=== PATIENT | male | born 1995 | race Caucasian/White ===

== ENCOUNTER → 2016-09-15 | Outpatient (CLI) | payer BC ==
--- NOTE | 2016-09-15 09:49 | USB ---
Reason for exam: clinical finding. History: Family history of breast cancer in maternal aunt at age 50. Indicated problem(s): palpable abnormality and pain in the right breast. Physical Findings: Nurse Summary: 0.5cm nodule at 10 o'clock (nurse dw). US Breast RT Right breast ultrasound includes all four quadrants, the retroareolar region and axilla. Finding demonstrates no cystic or solid lesion seen. These results were verbally communicated with the patient and result sheet given to the patient on 09/15/16. ASSESSMENT: Negative, BI-RAD 1 RECOMMENDATION: Clinical management of both breasts. Manage patient on a clinical basis.
== END | disposition home or self-care (01) ==
LOC: RADUSWWP 08:47
PROVIDERS: ATTEND Family Medicine
DX: N63 Unspecified lump in breast (principal)

== ENCOUNTER → 2020-11-14 | Outpatient (CLI) | payer BC ==
--- NOTE | 2020-11-14 13:34 | US ---
EXAMINATION TYPE: US scrotum with doppler. Grayscale and color Doppler Duplex imaging performed of t he scrotum. DATE OF EXAM: 11/14/2020 COMPARISON: NONE CLINICAL HISTORY: N50.819 testicular pain. left testicular pain EXAM MEASUREMENTS: TESTICLES: Right Testicle: 4.8 x 2.5 x 2.9 cm Left Testicle: 4.1 x 2.2 x 3.2 cm EPIDIDYMIS HEAD: Right Epididymis: 0.9 cm Left Epididymis: 0.9 cm Doppler performed to assess for testicular vascularity; good bilateral color flow and waveforms are s een. Presence of hydroceles: No Presence of varicoceles: Prominent vessels visualized on the left Possible left-sided varicocele. IMPRESSION: No suspicious increased or diminished blood flow to left testicle versus the opposite rig ht side. Probable left-sided varicocele otherwise unremarkable study
== END | disposition home or self-care (01) ==
LOC: RADUSWWP 12:56
PROVIDERS: ATTEND Family Medicine
DX: N50.812 Left testicular pain (principal)
CPT/HCPCS: 76870; 93975

== ENCOUNTER → 2021-07-07 | Outpatient (CLI) | payer BC ==
--- NOTE | 2021-07-07 16:41 | US ---
EXAMINATION TYPE: US kidneys/renal and bladder DATE OF EXAM: 07/07/2021 COMPARISON: NONE CLINICAL HISTORY: 25-year-old male R31.9 HEMATURIA, UNSPECIFIED. Microscopic hematuria, history of ki dney stones TECHNIQUE: Multiple sonographic images of the kidneys and bladder are obtained. FINDINGS: EXAM MEASUREMENTS: Right Kidney: 10.8 x 5.2 x 5.5 cm Left Kidney: 11.9 x 6.1 x 5.5 cm Post Void Residual Volume: 0 mL Manager Recovery notes:*technical limitations due to patient's body habitus and large amount of overlying bowel content Right Kidney: possible clustered small stones at the lower pole measuring up to 6 mm. No hydronephros is. Left Kidney: no evidence of hydronephrosis Bladder: Partially distended bladder shows no gross abnormality. Bilateral Jets seen: no Normal Post Void Residual: yes, complete emptying after voiding. Incidental echogenic appearance to the liver. IMPRESSION: 1. No hydronephrosis. 2. Possible clustered small calculi at the lower pole of the right kidney measuring up to 6 mm. 3. No evidence for urinary retention. 4. Moderate hepatic steatosis incidentally seen.
== END | disposition home or self-care (01) ==
LOC: RADUSWWP 14:49
PROVIDERS: ATTEND Family Medicine
DX: K76.0 Fatty (change of) liver, not elsewhere classified (principal)
CPT/HCPCS: 76770

== ENCOUNTER → 2021-09-16 | Outpatient (CLI) | payer BC ==
--- NOTE | 2021-09-16 11:55 | CT ---
EXAMINATION TYPE: CT abdomen pelvis wo con DATE OF EXAM: 09/16/2021 COMPARISON: None available HISTORY: Left lower quadrant pain CT DLP: 1312.6 mGycm Automated exposure control for dose reduction was used. TECHNIQUE: Helical acquisition of images was performed from the lung bases through the pelvis. FINDINGS: LUNG BASES: No significant abnormality is appreciated. LIVER/GB: Suspected hepatic steatosis. No radiodense gallbladder calculi. PANCREAS: No significant abnormality is seen. SPLEEN: No significant abnormality is seen. ADRENALS: No significant abnormality is seen. KIDNEYS: 3 mm partially obstructing stone is seen at the left ureterovesical junction within the urin malcolm bladder, causing mild left-sided hydroureter and hydronephrosis. Minimal left perinephric fat str anding. No other definite radiodense urinary calculi. No right-sided hydroureter or hydronephrosis. N o definite renal lesion by this nonenhanced CT scan. FREE AIR: No free air is visualized RETROPERITONEAL ADENOPATHY: None visualized REPRODUCTIVE ORGANS: No significant abnormality is seen URINARY BLADDER: No other significant urinary bladder abnormality. PELVIC ADENOPATHY: None visualized. OSSEOUS STRUCTURES: No aggressive bone lesion. BOWEL: No significant abnormality is seen. OTHER: No sizable ascites. Fat-containing abdominal hernia. IMPRESSION: Left ureterovesical partially obstructing 3 mm stone as described above, for clinical correlation and correlation with urinalysis results. Further urology consultation can be considered. Other findings as described above.
== END | disposition home or self-care (01) ==
LOC: RADCTMAIN 10:58
PROVIDERS: ATTEND Family Medicine
DX: N13.2 Hydronephrosis with renal and ureteral calculous obstruction (principal)
CPT/HCPCS: 74176

== ENCOUNTER 2022-07-14 11:45 | Emergency (ER) | payer BC ==
--- NOTE | 2022-07-14 12:20 | ED ---
General Adult HPI - General Chief complaint: Recheck/Abnormal Lab/Rx Stated complaint: hypertension Time Seen by Provider: 07/14/22 12:03 Source: patient, RN notes reviewed Mode of arrival: ambulatory Limitations: no limitations - History of Present Illness Initial comments: Patient is a pleasant 26-year-old male presents emergency department with renetta rn for high blood pressure. Patient did have back injury at work several days ago while lifting something. Patient does have chronic back problems with somewhat similar symptoms. Patient went to the clinic and was found to have high blood pressure. Patient had blood pressure 160/100 on. Patient went to clinic again and was found again to have high blood pressure and advised come to the emergency department. Patient does have some mild lightheadedness and mild headache. Headache is rated 4/10. Headache is similar to previous. Headache is not considered severe and was not sudden onset. - Related Data Home Medications Medication Instructions Recorded Confirmed Cyclobenzaprine [Flexeril] 5 mg PO HS 07/14/22 07/14/22 Lisdexamfetamine Dimesylate 50 mg PO DAILY 07/14/22 07/14/22 [Vyvanse] Naproxen 500 mg PO BID PRN 07/14/22 07/14/22 Vilazodone HCl 40 mg PO DAILY 07/14/22 07/14/22 Previous Rx's Medication Instructions Recorded atenoloL 25 mg PO DAILY #14 tablet 07/14/22 Allergies Allergy/AdvReac Type Severity Reaction Status Date / Time sulfamethoxazole Allergy Rash/Hives Verified 07/14/22 12:45 [From Bactrim] trimethoprim [From Bactrim] Allergy Rash/Hives Verified 07/14/22 12:45 Review of Systems ROS Statement: Those systems with pertinent positive or pertinent negative responses have been documented in the HPI. ROS Other: All systems not noted in ROS Statement are negative. Constitutional: Denies: fever Eyes: Denies: eye pain ENT: Denies: ear pain Respiratory: Denies: cough, dyspnea Cardiovascular: Denies: chest pain Endocrine: Denies: fatigue Gastrointestinal: Denies: abdominal pain Genitourinary: Denies: dysuria Musculoskeletal: Reports: as per HPI Skin: Denies: rash Neurological: Reports: as per HPI. Denies: weakness, confusion Past Medical History Past Medical History: No Reported History History of Any Multi-Drug Resistant Organisms: None Reported Past Surgical History: No Surgical Hx Reported Past Psychological History: ADD/ADHD, Depression Smoking Status: Never smoker Past Alcohol Use History: None Reported Past Drug Use History: None Reported General Exam Limitations: no limitations General appearance: alert, in no apparent distress Head exam: Present: normocephalic Eye exam: Present: normal appearance, PERRL, EOMI Neck exam: Present: normal inspection Respiratory exam: Present: normal lung sounds bilaterally Cardiovascular Exam: Present: regular rate, normal rhythm Expanded Peripheral pulses: 2+: Radial (R), Radial (L), Posterior Tibialis (R), Posterior Tibialis (L) GI/Abdominal exam: Present: soft. Absent: tenderness Extremities exam: Present: normal inspection. Absent: pedal edema, calf tenderness Neurological exam: Present: alert, oriented X3, CN II-XII intact. Absent: motor sensory deficit Expanded Neurological exam: Present: protecting the airway Speech: Present: fluid speech Cranial nerves: EOM's Intact: Normal Motor strength exam: RUE: 5, LUE: 5, RLE: 5, LLE: 5 Eye Response: (4) open spontaneously Motor Response: (6) obeys commands Verbal Response: (5) oriented Psychiatric exam: Present: normal affect, normal mood Skin exam: Present: normal color Course Vital Signs 07/14/22 07/14/22 07/14/22 11:52 12:18 12:30 Temperature 98.3 F 98.7 F Pulse Rate 101 H 98 99 Respiratory 18 12 12 Rate Blood Pressure 175/125 O2 Sat by Pulse 99 97 Oximetry 07/14/22 07/14/22 07/14/22 13:00 13:30 14:00 Temperature Pulse Rate 105 H 100 105 H Respiratory 16 16 12 Rate Blood Pressure 178/98 O2 Sat by Pulse Oximetry 07/14/22 07/14/22 14:30 15:01 Temperature 98.7 F Pulse Rate 107 H 100 Respiratory 14 16 Rate Blood Pressure 160/109 139/97 O2 Sat by Pulse 98 Oximetry Medical Decision Making - Medical Decision Making Was pt. sent in by a medical professional or institution (, PA, GEODETIC ENGINEER, urgent care, hospital, or fci...) When possible be specific @ -Patient was transferred from clinic for hypertension Did you speak to anyone other than the patient for history (EMS, parent, family, police, friend...)? What history was obtained from this source @ -No Did you review nursing and triage notes (agree or disagree)? Why? @ -I reviewed and agree with nursing and triage notes Were old charts reviewed (outside hosp., previous admission, EMS record, old EKG, old radiological studies, urgent care reports/EKG's, fci records)? Report findings @ -No old charts were reviewed Differential Diagnosis (chest pain, altered mental status, abdominal pain women, abdominal pain men, vaginal bleeding, weakness, fever, dyspnea, syncope, headache, dizziness, GI bleed, back pain, seizure, CVA, palpatations, mental health)? @ -not applicable EKG interpreted by me (3pts min.). @ -As above X-rays interpreted by me (1pt min.). @ -Two-view chest x-ray shows no acute process CT interpreted by me (1pt min.). @ -None done U/S interpreted by me (1pt. min.). @ -None done What testing was considered but not performed or refused? (CT, X-rays, U/S, labs)? Why? @ -None What meds were considered but not given or refused? Why? @ -None Did you discuss the management of the patient with other professionals (professionals i.e. , PA, GEODETIC ENGINEER, lab, RT, psych nurse, social security benefits interviewer, gericare aide, teacher, chief human resources officer, top case assembler)? Give summary @ -No Was smoking cessation discussed for >3mins.? @ -No Was critical care preformed (if so, how long)? @ -No Were there social determinants of health that impacted care today? How? (Homelessness, low income, unemployed, alcoholism, drug addiction, transportation, low edu. Level, literacy, decrease access to med. care, fpc, rehab)? @ -No Was there de-escalation of care discussed even if they declined (Discuss DNR or withdrawal of care, Hospice)? DNR status @ -No What co-morbidities impacted this encounter? (DM, HTN, Smoking, COPD, CAD, Cancer, CVA, ARF, Chemo, Hep., AIDS, mental health diagnosis, sleep apnea, morbid obesity)? @ -None Was patient admitted / discharged? Hospital course, mention meds given and route, prescriptions, significant lab abnormalities, going to OR and other pertinent info. @ -Patient reevaluated with improvement of blood pressure, 144/96. Patient will be discharged with prescription for oral medication and recommended close follow-up. Patient states he does have an appointment in a week. Undiagnosed new problem with uncertain prognosis? @ -No Drug Therapy requiring intensive monitoring for toxicity (Heparin, Nitro, Insulin, Cardizem)? @ -No Were any procedures done? @ -No Diagnosis/symptom? @ -Hypertension Acute, or Chronic, or Acute on Chronic? @ -Acute Uncomplicated (without systemic symptoms) or Complicated (systemic symptoms)? @ -default Side effects of treatment? @ -No Exacerbation, Progression, or Severe Exacerbation? @ -No Poses a threat to life or bodily function? How? (Chest pain, USA, NH, pneumonia, PE, COPD, DKA, ARF, appy, cholecystitis, CVA, Diverticulitis, Homicidal, Suicidal, threat to staff... and all critical care pts) @ -No - Lab Data Result diagrams: 07/14/22 13:27 07/14/22 13:27 Lab Results 07/14/22 07/14/22 07/14/22 Range/Units 13:27 13:27 13:27 WBC 7.9 (3.8-10.6) k/uL RBC 5.27 (4.30-5.90) m/uL Hgb 14.7 (13.0-17.5) gm/dL Hct 42.0 (39.0-53.0) % MCV 79.7 L (80.0-100.0) fL MCH 28.0 (25.0-35.0) pg MCHC 35.1 (31.0-37.0) g/dL RDW 13.7 (11.5-15.5) % Plt Count 323 (150-450) k/uL MPV 9.4 Neutrophils % 60 % Lymphocytes % 27 % Monocytes % 6 % Eosinophils % 3 % Basophils % 1 % Neutrophils # 4.8 (1.3-7.7) k/uL Lymphocytes # 2.1 (1.0-4.8) k/uL Monocytes # 0.4 (0-1.0) k/uL Eosinophils # 0.2 (0-0.7) k/uL Basophils # 0.1 (0-0.2) k/uL PT 10.1 (9.0-12.0) sec INR 1.0 (<1.2) APTT 24.9 (22.0-30.0) sec Sodium 137 (137-145) mmol/L Potassium 4.1 (3.5-5.1) mmol/L Chloride 101 (98-107) mmol/L Carbon Dioxide 27 (22-30) mmol/L Anion Gap 9 mmol/L BUN 11 (9-20) mg/dL Creatinine 0.74 (0.66-1.25) mg/dL Est GFR (CKD-EPI)AfAm >90 (>60 ml/min/1.73 sqM) Est GFR (CKD-EPI)NonAf >90 (>60 ml/min/1.73 sqM) Glucose 112 H (74-99) mg/dL Plasma Lactic Acid Gaudencio (0.7-2.0) mmol/L Calcium 9.4 (8.4-10.2) mg/dL Magnesium 2.3 (1.6-2.3) mg/dL Total Bilirubin 0.6 (0.2-1.3) mg/dL AST 41 (17-59) U/L ALT 57 H (4-49) U/L Alkaline Phosphatase 83 (38-126) U/L Total Protein 7.6 (6.3-8.2) g/dL Albumin 4.5 (3.5-5.0) g/dL TSH 1.120 (0.465-4.680) mIU/L Free T4 1.27 (0.78-2.19) ng/dL Free T3 pg/mL 4.4 (2.8-5.3) pg/ml Urine Color Urine Appearance (Clear) Urine pH (5.0-8.0) Ur Specific Aubrey (1.001-1.035) Urine Protein (Negative) Urine Glucose (UA) (Negative) Urine Ketones (Negative) Urine Blood (Negative) Urine Nitrite (Negative) Urine Bilirubin (Negative) Urine Urobilinogen (<2.0) mg/dL Ur Leukocyte Esterase (Negative) Urine WBC (0-5) /hpf Hyaline Casts (0-2) /lpf Urine Mucus (None) /hpf 07/14/22 07/14/22 Range/Units 13:27 13:39 WBC (3.8-10.6) k/uL RBC (4.30-5.90) m/uL Hgb (13.0-17.5) gm/dL Hct (39.0-53.0) % MCV (80.0-100.0) fL MCH (25.0-35.0) pg MCHC (31.0-37.0) g/dL RDW (11.5-15.5) % Plt Count (150-450) k/uL MPV Neutrophils % % Lymphocytes % % Monocytes % % Eosinophils % % Basophils % % Neutrophils # (1.3-7.7) k/uL Lymphocytes # (1.0-4.8) k/uL Monocytes # (0-1.0) k/uL Eosinophils # (0-0.7) k/uL Basophils # (0-0.2) k/uL PT (9.0-12.0) sec INR (<1.2) APTT (22.0-30.0) sec Sodium (137-145) mmol/L Potassium (3.5-5.1) mmol/L Chloride (98-107) mmol/L Carbon Dioxide (22-30) mmol/L Anion Gap mmol/L BUN (9-20) mg/dL Creatinine (0.66-1.25) mg/dL Est GFR (CKD-EPI)AfAm (>60 ml/min/1.73 sqM) Est GFR (CKD-EPI)NonAf (>60 ml/min/1.73 sqM) Glucose (74-99) mg/dL Plasma Lactic Acid Gaudencio 1.5 (0.7-2.0) mmol/L Calcium (8.4-10.2) mg/dL Magnesium (1.6-2.3) mg/dL Total Bilirubin (0.2-1.3) mg/dL AST (17-59) U/L ALT (4-49) U/L Alkaline Phosphatase (38-126) U/L Total Protein (6.3-8.2) g/dL Albumin (3.5-5.0) g/dL TSH (0.465-4.680) mIU/L Free T4 (0.78-2.19) ng/dL Free T3 pg/mL (2.8-5.3) pg/ml Urine Color Yellow Urine Appearance Clear (Clear) Urine pH 6.5 (5.0-8.0) Ur Specific Aubrey 1.014 (1.001-1.035) Urine Protein 1+ H (Negative) Urine Glucose (UA) Negative (Negative) Urine Ketones Negative (Negative) Urine Blood Negative (Negative) Urine Nitrite Negative (Negative) Urine Bilirubin Negative (Negative) Urine Urobilinogen <2.0 (<2.0) mg/dL Ur Leukocyte Esterase Negative (Negative) Urine WBC 3 (0-5) /hpf Hyaline Casts 1 (0-2) /lpf Urine Mucus Rare H (None) /hpf Disposition Clinical Impression: Hypertension Disposition: HOME SELF-CARE Condition: Stable Instructions (If sedation given, give patient instructions): Hypertension (ED) Additional Instructions: Please do follow-up with primary care physician in the next day or 2 for recheck. Prescription sent to pharmacy, please start this evening. Return for increased blood pressure, headache or weakness, chest pain, worsening symptoms or any other concerns. Prescriptions: atenoloL 25 mg PO DAILY #14 tablet Is patient prescribed a controlled substance at d/c from ED?: No Referrals: Armando Livingston MD [Primary Care Provider] - 1-2 days Time of Disposition: 15:11
[2022-07-14] MEDS ORDERED: hydrALAZINE HCL 20 MG/ML 1 ML VIAL IVP STA (12:21)
[2022-07-14 12:24] VITALS: TEMP 98.7
--- NOTE | 2022-07-14 14:01 | XR ---
EXAMINATION TYPE: XR chest 2V DATE OF EXAM: 07/14/2022 COMPARISON: None INDICATION: Chest pain TECHNIQUE: Frontal and lateral views of the chest are obtained. FINDINGS: The heart size is normal. The pulmonary vasculature is normal. The lungs are clear. IMPRESSION: 1. No acute pulmonary process.
[2022-07-14 14:04] LABS: Basophils # (A) 0.1 k/uL (0-0.2); Basophils % (A) 1 %; Eosinophils # (A) 0.2 k/uL (0-0.7); Eosinophils % (A) 3 %; HGB 14.7 gm/dL (13.0-17.5); Lymphocytes # (A) 2.1 k/uL (1.0-4.8); Lymphocytes % (A) 27 %; MCHC 35.1 g/dL (31.0-37.0); MCV 79.7 fL (80.0-100.0); Mean Platelet Volume 9.4; Monocytes # (A) 0.4 k/uL (0-1.0); Monocytes % (A) 6 %; Neutrophils # (A) 4.8 k/uL (1.3-7.7); Neutrophils % (A) 60 %; Platelet Count 323 k/uL (150-450); RBC 5.27 m/uL (4.30-5.90); RDW 13.7 % (11.5-15.5); WBC 7.9 k/uL (3.8-10.6)
[2022-07-14 14:16] LABS: Chloride 101 mmol/L (98-107)
[2022-07-14 14:17] LABS: ALT 57 U/L (4-49); AST 41 U/L (17-59); African American GFR (CKD) >90 (>60 ml/min/1.73 sqM); Albumin 4.5 g/dL (3.5-5.0); Alkaline Phosphatase 83 U/L (38-126); Anion Gap 9 mmol/L; Blood Urea Nitrogen 11 mg/dL (9-20); Calcium 9.4 mg/dL (8.4-10.2); Carbon Dioxide 27 mmol/L (22-30); Glucose 112 mg/dL (74-99); Magnesium 2.3 mg/dL (1.6-2.3); Non-African American GFR(CKD) >90 (>60 ml/min/1.73 sqM); Potassium 4.1 mmol/L (3.5-5.1); Sodium 137 mmol/L (137-145); Total Bilirubin 0.6 mg/dL (0.2-1.3); Total Protein 7.6 g/dL (6.3-8.2)
[2022-07-14 14:27] LABS: Appearance,Urine Clear (Clear); Bilirubin,Urine Negative (Negative); Blood,Urine Negative (Negative); Color,Urine Yellow; Glucose,Urine (UA) Negative (Negative); Hyaline Casts,Urine 1 /lpf (0-2); Ketones,Urine Negative (Negative); Leukocyte Esterase,Urine Negative (Negative); Mucus,Urine Rare /hpf; Nitrite,Urine Negative (Negative); PH, Urine 6.5 (5.0-8.0); Protein,Urine 1+ (Negative); Specific Gravity,Urine 1.014 (1.001-1.035); Urobilinogen,Urine <2.0 mg/dL (<2.0); WBC,Urine 3 /hpf (0-5)
[2022-07-14] MEDS ORDERED: LABETALOL 5 MG/ML VIAL MDV IVP SCH (14:30)
[2022-07-14 14:32] LABS: T4, Free (Free Thyroxine) 1.27 ng/dL (0.78-2.19)
[2022-07-14 15:02] VITALS: BP 139/97; PULSE 100; RESP 16
[2022-07-14 15:05] LABS: Partial Thromboplastin Time 24.9 sec (22.0-30.0); Prothrombin Time 10.1 sec (9.0-12.0)
== END 2022-07-14 15:35 | disposition home or self-care (01) ==
LOC: EC 11:45
DX: I10 Essential (primary) hypertension (principal); F90.9 Attention-deficit hyperactivity disorder, unspecified type; F32.A Depression, unspecified; Z88.2 Allergy status to sulfonamides; Z79.899 Other long term (current) drug therapy
CPT/HCPCS: 36415; 93005; 84439; 84481; 80053; 83605; 83735; 84443; 85025; 85610; 85730; 81001; 71046; 99284; 96374; 96375; J0360

== ENCOUNTER → 2022-09-07 | Outpatient (CLI) | payer BC ==
--- NOTE | 2022-09-07 10:17 | US ---
EXAMINATION TYPE: US Aorta Screening DATE OF EXAM: 09/07/2022 COMPARISON: CT abdomen and pelvis 09/16/2021 CLINICAL INDICATION: Male, 26 years old with history of Z80.49 FAMILY HX OF ISCHEM HEART DIS AND OTH DIS OF THE CIR; AAA screening family hx. TECHNIQUE: Multiple sonographic images of the abdominal aorta are obtained. FINDINGS: EXAM MEASUREMENTS: Abdominal Aorta: Proximal: 2.9 cm limited due to bowel gas. Mid: 1.5 x 1.5 cm Distal: 1.2 x 1.7 cm Bifurcation: 1.0 cm 1.4 cm KNOTTER NOTES: No evidence of AAA visualized. IMPRESSION: No ultrasound evidence for abdominal aortic aneurysm. Questionable ectasia of the proximal abdominal aorta up to 2.9 cm. Evaluation is limited due to overlying bowel gas.
== END | disposition home or self-care (01) ==
LOC: RADUSWWP 09:40
PROVIDERS: ATTEND Family Medicine
DX: Z13.6 Encounter for screening for cardiovascular disorders (principal); Z82.49 Family history of ischemic heart disease and other diseases of the circulatory system
CPT/HCPCS: 76706

== ENCOUNTER → 2022-10-07 | Outpatient (CLI) | payer BC ==
--- NOTE | 2022-10-07 12:58 | US ---
EXAMINATION TYPE: US abdomen complete DATE OF EXAM: 10/07/2022 COMPARISON: NONE CLINICAL INDICATION: Male, 26 years old with history of R10.11 RUQ PAIN; RUQ PAIN TECHNIQUE: Multiple sonographic images of the abdomen are obtained. FINDINGS: EXAM MEASUREMENTS: Liver Length: 17.4 cm Gallbladder Wall: .3 cm CBD: .5 cm Spleen: 11 cm Right Kidney: 11.6 x 5.0 x 5.1 cm Left Kidney: 11.4 x 5.2 x 4.2 cm Pancreas: On a small portion of the pancreatic neck is seen. Remainder obscured by bowel gas shadowi ng. Liver: Increased attenuation Gallbladder: No stones seen Evidence for sonographic Dior's sign: No CBD: wnl Spleen: wnl Right Kidney: wnl Left Kidney: Hypoechoic area seen upper pole pole measuring 2.2 x 2.0 x 2.4 cm. No hydronephrosis. Upper IVC: wnl Abd Aorta: wnl IMPRESSION: 1. Borderline hepatomegaly at 17.4 cm. Moderate to severe hepatic steatosis. Correlation with LFTs, l ipid profile, and patient risk factors. 2. No gallstones or biliary ductal dilatation. 3. A 2.4 cm round hypoechoic area at the upper pole of the left kidney. This could represent a debris -filled cyst. Other etiologies not excluded. Recommend 6 month follow-up ultrasound to reassess.
== END | disposition home or self-care (01) ==
LOC: RADUSWWP 07:40
PROVIDERS: ATTEND Family Medicine
DX: K76.0 Fatty (change of) liver, not elsewhere classified (principal); R16.0 Hepatomegaly, not elsewhere classified; R10.11 Right upper quadrant pain
CPT/HCPCS: 76700

== ENCOUNTER 2023-03-11 08:27 | Emergency (ER) | payer BC ==
[2023-03-11 08:51] VITALS: TEMP 98.1
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
--- NOTE | 2023-03-11 09:46 | ED ---
General Adult HPI - General Chief complaint: Syncope Stated complaint: Syncope Time Seen by Provider: 03/11/23 08:29 Source: patient, EMS, RN notes reviewed Mode of arrival: EMS Limitations: no limitations - History of Present Illness Initial comments: 27-year-old male presents emergency Department with chief complaint of syncopal episode. Patient has at work he states he was laughing extremity hard he states he started coughing and then passed out. He states that he woke up on the ground. He states that he struck his head left temporal region on the fridge and the ground. Patient has no complaints currently other than a mild headache. - Related Data Home Medications Medication Instructions Recorded Confirmed Cyclobenzaprine [Flexeril] 5 mg PO HS 07/14/22 07/14/22 Lisdexamfetamine Dimesylate 50 mg PO DAILY 07/14/22 07/14/22 [Vyvanse] Naproxen 500 mg PO BID PRN 07/14/22 07/14/22 Vilazodone HCl 40 mg PO DAILY 07/14/22 07/14/22 Previous Rx's Medication Instructions Recorded atenoloL 25 mg PO DAILY #14 tablet 07/14/22 Allergies Allergy/AdvReac Type Severity Reaction Status Date / Time sulfamethoxazole Allergy Rash/Hives Verified 03/11/23 08:32 [From Bactrim] trimethoprim [From Bactrim] Allergy Rash/Hives Verified 03/11/23 08:32 Review of Systems ROS Statement: Those systems with pertinent positive or pertinent negative responses have been documented in the HPI. ROS Other: All systems not noted in ROS Statement are negative. Past Medical History Past Medical History: Hypertension History of Any Multi-Drug Resistant Organisms: None Reported Past Surgical History: No Surgical Hx Reported Past Psychological History: ADD/ADHD, Depression Smoking Status: Never smoker Past Alcohol Use History: Occasional Past Drug Use History: None Reported General Exam Limitations: no limitations General appearance: alert, in no apparent distress Head exam: Present: atraumatic, normocephalic, normal inspection Eye exam: Present: normal appearance, PERRL, EOMI. Absent: scleral icterus, conjunctival injection, periorbital swelling ENT exam: Present: normal exam, mucous membranes moist Neck exam: Present: normal inspection, full ROM. Absent: tenderness, meningismus, lymphadenopathy Respiratory exam: Present: normal lung sounds bilaterally. Absent: respiratory distress, wheezes, rales, rhonchi, stridor Cardiovascular Exam: Present: regular rate, normal rhythm, normal heart sounds. Absent: systolic murmur, diastolic murmur, rubs, gallop, clicks Neurological exam: Present: alert, oriented X3, CN II-XII intact, reflexes normal. Absent: motor sensory deficit Course Vital Signs 03/11/23 03/11/23 08:29 10:24 Temperature 98.1 F Pulse Rate 71 79 Respiratory 20 18 Rate Blood Pressure 132/90 116/64 O2 Sat by Pulse 96 98 Oximetry EKG Findings - EKG Comments: EKG Findings:: EKG performed at: 38 sinus rhythm rate of 74 [place] 174 QRS 101 QT/QTC 357/384 - EKG Results: EKG: interpreted by [facility] Medical Decision Making - Medical Decision Making Was pt. sent in by a medical professional or institution (, PA, TURBINE INSPECTOR, urgent care, hospital, or fci...) When possible be specific @ -No Did you speak to anyone other than the patient for history (EMS, parent, family, police, friend...)? What history was obtained from this source @ -No Did you review nursing and triage notes (agree or disagree)? Why? @ -I reviewed and agree with nursing and triage notes Were old charts reviewed (outside hosp., previous admission, EMS record, old EKG, old radiological studies, urgent care reports/EKG's, fci records)? Report findings @ -No old charts were reviewed Differential Diagnosis (chest pain, altered mental status, abdominal pain women, abdominal pain men, vaginal bleeding, weakness, fever, dyspnea, syncope, headache, dizziness, GI bleed, back pain, seizure, CVA, palpatations, mental health, musculoskeletal)? @ -Differential Syncope: Valvular disease, hypertrophic cardiomyopathy, pulmonary embolism, tamponade, tachycardia, bradycardia, AK, hypovolemia, hemorrhage, dissection, anemia, intracranial hemorrhage, seizure, hypoglycemia, carbon monoxide poisoning, this is not meant to be an all-inclusive list. EKG interpreted by me (3pts min.). @ -As above X-rays interpreted by me (1pt min.). @ -None done CT interpreted by me (1pt min.). @ -CT brain, C-spine shows no acute process. U/S interpreted by me (1pt. min.). @ -None done What testing was considered but not performed or refused? (CT, X-rays, U/S, labs)? Why? @ -None What meds were considered but not given or refused? Why? @ -None Did you discuss the management of the patient with other professionals (professionals i.e. , PA, TURBINE INSPECTOR, lab, RT, psych nurse, social work professor, repair weaver, teacher, duty officer, family caseworker)? Give summary @ -No Was smoking cessation discussed for >3mins.? @ -No Was critical care preformed (if so, how long)? @ -No Were there social determinants of health that impacted care today? How? (Homelessness, low income, unemployed, alcoholism, drug addiction, transportation, low edu. Level, literacy, decrease access to med. care, senior living, rehab)? @ -No Was there de-escalation of care discussed even if they declined (Discuss DNR or withdrawal of care, Hospice)? DNR status @ -No What co-morbidities impacted this encounter? (DM, HTN, Smoking, COPD, CAD, Cancer, CVA, ARF, Chemo, Hep., AIDS, mental health diagnosis, sleep apnea, morbid obesity)? @ -None Was patient admitted / discharged? Hospital course, mention meds given and route , prescriptions, significant lab abnormalities, going to OR and other pertinent info. @ -Discharge patient to vasovagal syncope. Patient is vitally stable has no specific complaints. CT was negative. EKG was unremarkable. Patient agrees a stable discharged return parameters discussed Undiagnosed new problem with uncertain prognosis? @ -No Drug Therapy requiring intensive monitoring for toxicity (Heparin, Nitro, Insulin, Cardizem)? @ -No Were any procedures done? @ -No Diagnosis/symptom? @ -Syncope Acute, or Chronic, or Acute on Chronic? @ -Acute Uncomplicated (without systemic symptoms) or Complicated (systemic symptoms)? @ -[Uncomplicated Side effects of treatment? @ -No Exacerbation, Progression, or Severe Exacerbation? @ -No Poses a threat to life or bodily function? How? (Chest pain, [place], AK, pneumonia, PE, COPD, DKA, ARF, appy, cholecystitis, CVA, Diverticulitis, Homicidal, Suicidal, threat to staff... and all critical care pts) @ -No Disposition Clinical Impression: Vasovagal syncope, Closed head injury Disposition: HOME SELF-CARE Condition: Stable Instructions (If sedation given, give patient instructions): Syncope (DC) Additional Instructions: Please return to the Emergency Department if symptoms worsen or any other concerns. Is patient prescribed a controlled substance at d/c from ED?: No Referrals: Armando Livingston MD [Primary Care Provider] - 1-2 days Time of Disposition: 09:46
[2023-03-11 10:34] VITALS: BP 116/64; PULSE 79; RESP 18
== END 2023-03-11 10:25 | disposition home or self-care (01) ==
LOC: EC 08:27
DX: S09.90XA Unspecified injury of head, initial encounter (principal); R55 Syncope and collapse; I10 Essential (primary) hypertension; F90.9 Attention-deficit hyperactivity disorder, unspecified type; F32.A Depression, unspecified; Z79.899 Other long term (current) drug therapy; Z88.1 Allergy status to other antibiotic agents; Z88.2 Allergy status to sulfonamides; W18.30XA Fall on same level, unspecified, initial encounter
CPT/HCPCS: 70450; 72125; 93005; 99284

== ENCOUNTER → 2023-04-28 | Outpatient (CLI) | payer BC ==
--- NOTE | 2023-04-28 14:25 | US ---
EXAMINATION TYPE: US kidneys/renal and bladder DATE OF EXAM: 04/28/2023 COMPARISON: NONE CLINICAL INDICATION: Male, 27 years old with history of N28.1 CYST OF KIDNEY, ACQUIRED; left renal le carlos enrique noted on previous exam EXAM MEASUREMENTS: Right Kidney: 10.4 x 4.7 x 4.9 cm Left Kidney: 11.9 x 4.4 x 6.2 cm Right Kidney: No hydronephrosis or masses seen Left Kidney: 1.9 x 1.8 x 1.6cm, hypoechoic area at the mid pole that may be normal renal tissue versu s other etiology. The identity access management architect was unable to identify the previously seen hypoechoic cortical area at the upper mid pole. No hydronephrosis. Bladder: wnl Bilateral Jets seen: right Increased echogenicity of the hepatic parenchyma. IMPRESSION: 1. No hydronephrosis. 2. A 1.9 cm hypoechoic rounded area at the central left mid pole seen today is in a slightly differen t location than the area questioned at the upper to mid pole on 10/07/2022. Additional six-month follo w-up ultrasound recommended. 3. Incidental moderate to severe hepatic steatosis. Appropriate clinical management is advised. [facility] referral.
== END | disposition home or self-care (01) ==
LOC: RADUSWWP 08:52
PROVIDERS: ATTEND Family Medicine
DX: N28.1 Cyst of kidney, acquired (principal)
CPT/HCPCS: 76770

== ENCOUNTER → 2023-06-15 | Outpatient (CLI) | payer BC ==
--- NOTE | 2023-06-15 11:23 | CT ---
EXAMINATION TYPE: CT abdomen pelvis wo con DATE OF EXAM: 06/15/2023 COMPARISON: 09/16/2021 and ultrasound 04/28/2023 HISTORY: 27-year-old male N28.[address] DLP: 1352.8 mGycm. Automated exposure control for dose reduction was used. TECHNIQUE: Contiguous axial scanning of the abdomen and pelvis without IV contrast. Coronal and sagit romel reconstructions performed. FINDINGS: There is some bronchial wall thickening in the visualized lower lungs. No pleural effusion. Tiny hiatal hernia. The liver shows diminished attenuation compatible with fatty infiltration. No abnormal gallbladder di stention. Adrenal glands, spleen, and pancreas within normal limits. Kidneys show no nephrolithiasis or hydronephrosis or contour deforming mass. A prominent but nonenlarged 7 mm gastrohepatic ligament lymph node remains unchanged from 2021. No me senteric or retroperitoneal lymphadenopathy. Normal appendix. Mild scattered stool. No pericolonic inflammatory change. Tiny fatty umbilical hernia. Bladder underdistended. No abnormal fluid collection in the pelvis or pelvic lymphadenopathy. Bones: Some degenerative bony bridging right SI joint. Disc osteophyte complex formation L4-L5 mildly narrowing the spinal canal. Moderate degenerative disc disease visualized lower thoracic spine. IMPRESSION: 1. Noncontrast exam shows no suspicious contour deforming renal mass. Six-month follow-up renal ultr asound recommended. 2. At least moderate hepatic steatosis. Appropriate clinical management is advised. 3. Tiny hiatal hernia. 4. Some bronchial wall thickening in the visualized lower lungs. Correlate for any symptoms of bronc hitis or asthma.
== END | disposition home or self-care (01) ==
LOC: RADCTMAIN 09:01
PROVIDERS: ATTEND Family Medicine
DX: N28.89 Other specified disorders of kidney and ureter (principal); K76.0 Fatty (change of) liver, not elsewhere classified; K44.9 Diaphragmatic hernia without obstruction or gangrene; J98.4 Other disorders of lung
CPT/HCPCS: 74176